=== PATIENT | female | born 1960 | race Caucasian/White ===

== ENCOUNTER 2019-04-24 13:08 | Emergency (ER) | payer SELFPAY ==
[~2019-04-24] VITALS: Ht 165.1 cm; Wt 86.2 kg
[2019-04-24 13:15] VITALS: Ht 165.1 cm; Wt 86.2 kg
[2019-04-24 16:16] VITALS: BP 135/89
== END 2019-04-24 16:16 | disposition home or self-care (01) ==
LOC: ED 13:08
DX: I16.0 Hypertensive urgency (principal)
CPT/HCPCS: J0780; J1885